=== PATIENT | female | born 1950 | race Caucasian/White ===

== ENCOUNTER → 2019-11-27 09:53 | Outpatient (CLI) | payer OTHER, SELFPAY ==
--- NOTE | 2019-11-27 | DI.RAD.S_ITS ---
PROCEDURE: XR DEXA AXIAL SKELETON INDICATIONS: OSTEOPOROSIS COMPARISON: None. FINDINGS: This blank DEXA report has been sent in error by the PACS system. The correct and complete report will be forthcoming in 1-2 days. Thank you for your patience and understanding. Dictated by: Rozina Muller MD, PhD on 11/27/2019 at 10:53 Approved by: Rozina Muller MD, PhD on 11/27/2019 at 11:03
== END ==
PROVIDERS: Family Provider Family Medicine; PCP Family Medicine; Referring Provider Family Medicine; Visit Provider Family Medicine
DX: M81.0 Age-related osteoporosis without current pathological fracture (principal); Z78.0 Asymptomatic menopausal state; E21.3 Hyperparathyroidism, unspecified; Z87.891 Personal history of nicotine dependence
CPT/HCPCS: 77080

== ENCOUNTER → 2023-11-18 13:34 | Outpatient (CLI) | payer OTHER, SELFPAY ==
--- NOTE | 2023-11-18 13:35 | DI.US.S_ITS ---
PROCEDURE: US THYROID INDICATIONS: preop thyroid TECHNIQUE: Real-time scanning was performed of the thyroid gland, with image documentation. COMPARISON: [facility], US, US THYROID, 01/05/2022, 10:50. [facility], US, US FINE NEEDLE ASPIRATION, 09/23/2020, 9:40. [facility], US, US THYROID, 09/01/2020, 9:50. [facility], US, US THYROID, 05/27/2023, 8:55. FINDINGS: Thyroid: Right lobe measures 3.7 x 1.3 x 1.0 cm. Left lobe measures 6.2 x 2.6 x 4.7 cm. Isthmus is 0.3 cm thick. Echotexture is heterogeneous. Nodule number: 1 Location: Right superior and posterior Size: Unchanged 1.3 cm. Composition: Predominantly solid Echogenicity: Mildly hypoechoic Shape: wider than tall. Margins: Smooth Echogenic foci: Absent Total points: 3 ACR TI-RADS category: Mildly suspicious Nodule number: 2 Location: Left inferior Size: Unchanged 5.9 cm. Composition: Predominantly solid Echogenicity: Heterogeneous Shape: wider than tall. Margins: Smooth Echogenic foci: Internal punctate echogenic foci Total points: 6 ACR TI-RADS category: Moderately suspicious Nodule number: 3 Location: Left superior Size: Unchanged 1.4 cm. Composition: Predominantly solid Echogenicity: Isoechoic Shape: wider than tall. Margins: Smooth Echogenic foci: Punctate echogenic foci Total points: 3 ACR TI-RADS category: Moderately suspicious IMPRESSION: Stable appearance of bilateral thyroid nodules. ACR TI-RADS definitions and recommendations: TI-RADS 1 (benign): 0 points. FNA not needed. TI-RADS 2 (not suspicious): 2 points. FNA not needed. TI-RADS 3 (mildly suspicious): 3 points. * FNA if 2.5 cm or larger, follow up if 1.5 cm or larger (at 1, 3, and 5 years). TI-RADS 4 (moderately suspicious): 4-6 points. * FNA if 1.5 cm or larger, follow up if 1 cm or larger (at 1, 2, 3, and 5 years). TI-RADS 5 (highly suspicious): 7 points or more. * FNA if 1 cm or larger, follow up if 0.5 cm or larger (every year for 5 years). Dictated by: Efren BENTON Interpreted: Gaston Chase MD on 11/18/2023 at 15:31 Transcribed by: MIRELLA on 11/18/2023 at 15:36 Approved by: Gaston Chase M.D. on 11/19/2023 at 8:40
[2023-11-18 16:10] LABS: Thyroid Stimulating Hormone 0.416 uIU/mL (0.47-4.68)
== END ==
PROVIDERS: Family Provider Family Medicine; PCP Family Medicine; Referring Provider Surgery; Visit Provider Surgery
DX: E04.2 Nontoxic multinodular goiter (principal)
CPT/HCPCS: 36415; 76536; 84443

== ENCOUNTER 2023-12-11 11:42 | Day surgery (SDC) | payer OTHER, SELFPAY ==
[2023-12-09 11:46] VITALS: BMI 22.1
[2023-12-11] VITALS (11 sets, daily range): BP systolic 120–186; BP diastolic 68–89; PULSE 56–73; RESP 8–22; TEMP 36.7–37.1; O2SAT 95–100; BMI 21.4
--- NOTE | 2023-12-11 | PATH_ITS ---
[facility] Accession Number: [id number] No. of containers..01 Tissue . 01 Material submitted: . THYROID - LEFT THYROID . 01 Diagnosis: LEFT THYROID, HEMITHYROIDECTOMY: Multinodular hyperplasia with dominant colloid nodules (4.5 cm,1.2 cm). Changes consistent with prior procedure. No evidence of malignancy. . [facility] 12/13/2023 0929 Local . 01 Electronically signed: . Jess Cobb MD, Pathologist NPI- [id number] . 01 Gross description: . Specimen is received in formalin, labeled with two patient identifiers and thyroid left, consists of a 5.5 x 4.0 x 3.1 cm, 33-gram, markedly distorted, enlarged lobe of thyroid that has a dobbins, shaggy, lobulated and irregular external surface. Further orientation cannot be determined anatomically, and the specimen is entirely inked blue and serially sectioned to show a 4.5 x 3.0 x 2.1 cm, faint, ill-defined, partially encapsulated, red-dobbins, cystic solitary nodule which abuts the shaggy overlying thyroid capsule. In addition, there is a 1.2 x 1.2 x 1.1 cm encapsulated dobbins colloid nodule that is loosely adherent to the periphery of the specimen and is otherwise unremarkable. The remaining thyroid parenchyma is red-dobbins, spongy, and the isthmus margin cannot be determined. No parathyroid or lymph nodes are appreciated on the external surface of the thyroid. [employer] sections are submitted as follows: . A1-A5: Sections of largest nodule concentrated on capsule and relationship to external surface of thyroid. A6: [employer] sections of loosely attached peripheral colloid nodule (smaller nodule). A7: [employer] sections of uninvolved thyroid parenchyma. A photograph is taken of the specimen . ([id number]) /MRV 12/12/2023 1811 Local . 01 Pathologist provided ICD-10: E04.2 . 01 CPT . 099677 Performed at: [address] [facility] [address], [place], [place] [id number] MD Cleveland Garcia MD Phone: [phone]
[2023-12-11] MEDS: LACTATED RINGERS 1,000 ML 42 ML IV (12:11)
[2023-12-11] MEDS: ACETAMINOPHEN 325 MG TABLET 975 MG PO (12:21)
--- NOTE | 2023-12-11 13:37 | PM.HP.1 ---
History of Present Illness History of Present Illness Date Patient Seen: 12/11/23 Time Patient Seen: 13:38 Chief complaint: Left Thyroidectomy Narrative: 73F with globus sensation and highly suspicious left thyroid nodules here for left hemithyroidectomy. No interval change in health. [facility] Medical History Osteoporosis Hypothyroidism Hyperkalemia Hyperparathyroidism Vitamin B12 deficiency Surgical History History of cholecystectomy H/O gastric bypass H/O parathyroidectomy Social History household members: spouse Smoking Status: Former smoker alcohol intake: never Meds Home Medications and Allergies Home Medications Medication Instructions Recorded Confirmed Type citalopram 20 mg tablet 20 mg PO DAILY 11/07/23 12/11/23 History ibandronate 150 mg tablet 150 mg PO QMONTH 11/07/23 12/11/23 History levothyroxine 75 mcg capsule 75 mcg PO DAILY 11/07/23 12/11/23 History Allergies Allergy/AdvReac Type Severity Reaction Status Date / Time No Known Drug Allergies Allergy Verified 12/11/23 12:22 Exam Vital Signs (past 8 hours): - 12/11/23 12:24 Temperature 98.8 F Pulse Rate 56 L Respiratory Rate 16 Blood Pressure 152/73 H Pulse Oximetry 99 Oxygen Delivery Method Room Air Oxygen Delivery Method Room Air Narrative Exam Narrative: Gen-Adult woman alert and oriented Left neck marked with my initials. Assessment & Plan Assessment and plan (1) Thyroid nodule: Status: Acute Assessment & Plan narrative: 73F with globus sensation and highly suspicious appearing left thyroid nodules. There is a right thyroid nodule but not highly suspicious and she had a prior r parathyroidectomy. I recommend left hemithyroidectomy the right nodule can be observed as there is an increased risk of injury associated with reoperation on the right. Overview of the operation discussed. Operative risks including hemorrhage, infection, nerve injury reviewed. She provides her consent to proceed. Time-Based Coding :: [TOTAL MINUTES] spent with patient and on the chart (including review of chart, obtaining history, exam, reviewing outside data, placing orders, documenting exam and treatment plan, and counseling patient) on [DATE].
[2023-12-11] MEDS: CEFAZOLIN 2 GM/100 ML PREMIX 100 ML IV (14:21)
--- NOTE | 2023-12-11 14:32 | SUR.OPER ---
Supine, head on gel donut. Arms padded with gel pads, tucked at sides, towel roll under shoulders. Safety belt at thigh. Legs uncrossed.
[2023-12-11] MEDS: BUPIVACAINE 0.25% (PF) VIAL 30 ML INJ (14:36)
--- NOTE | 2023-12-11 15:37 | P.OP_ITS ---
Operative Date/Time/Diagnoses Date of procedure: 12/11/23 Time of procedure: 15:38 Pre-op diagnosis: thyroid nodules Post-op diagnosis: same Procedure & Clinicians Procedure: Left hemithyroidectomy Same procedure as scheduled: Yes Indications: 73-year-old woman with to large highly suspicious nodules within the left thyroid resulting in globus sensation. She has a right-sided thyroid nodule which is not highly suspicious and history of a right parathyroidectomy and therefore we elected to remove only the left thyroid. Surgeon: Clay Bragg [employer] Clerk: Pankaj Fairbanks Anesthesia Type: General Operative Notes Findings: Multinodular left thyroid gland Superior and inferior left parathyroid glans identified. L recurrent laryngeal nerve identified Adhesions to the right thryoid capsule Specimen(s): other (Left thyroid) Estimated Blood Loss (mL): 20 Procedure in detail: Patient was brought to the operating room and placed supine on the table. Bilateral lower extremity compression devices were applied. General anesthesia was induced and he was intubated with an endotracheal tube. 2 g of Ancef were infused prior to skin incision. A shoulder roll was placed to extend the neck. She was prepped and draped in sterile fashion. A time-out was performed. A 6 cm collar incision 2 fingerbreadths above the sternal notch was made in the natural skin crease of the neck. The subcutaneous tissue was divided as well as the platysma using electrocautery. Subplatysmal flaps were developed in all directions. The midline raphe between the strap muscles was opened vertically along the direction of its fibers. The left thyroid lobe was very prominent. There were adhesions to the right thyroid capsule. The superior pole of the thyroid was approached 1st. The superior pole vessels were divided using the LigaSure close to the thyroid capsule. Next the inferior pole was approached a nd the strap muscles were carefully dissected away from the thyroid. The thyroid was then mobilized medial and anterior and this provided exposure of the recurrent laryngeal nerve running in the tracheoesophageal groove. The nerve was traced distal and proximal to its insertion and protected out of harm's way. The superior and inferior parathyroid glands were identified and protected. The middle thyroid vein was ligated and divided. The thyroid lobe was then dissected off of the trachea in its entirety and passed off the field as specimen. The isthmus was divided using the Thunderbeat. The field was copiously irrigated with water and hemostasis was achieved. A Valsalva was provided and there was no evidence of hemorrhage. The left thyroid bed was then dressed with Surgicel. Strap muscles were reapproximated using 3 0 Vicryl and the platysma with 4 0 Maxon. The skin was closed with a running 4-0 Monocryl suture followed by the application of Dermabond and Steri-Strips. Patient tolerated the procedure well. He emerged from anesthesia was extubated and transferred to the postoperative care unit in stable condition. Complications: none Post-operative Condition: stable Disposition: same day surgery
[2023-12-11] MEDS: HYDROMORPHONE 1 MG INJ IV ×3 (15:58→16:15)
[2023-12-11] MEDS: hydrOXYzine 50 MG/ML INJ 25 MG IM (16:16)
[2023-12-11] MEDS: OXYCODONE IR 5 MG TABLET PO (16:17)
[2023-12-11] MEDS: ONDANSETRON 4 MG/2 ML INJ IV (16:18)
== END 2023-12-11 17:00 | disposition home or self-care (01) ==
PROVIDERS: Family Provider Family Medicine; PCP Family Medicine; Referring Provider Surgery; Visit Provider Surgery
PROC: (CPT 60220; principal; 2023-12-11 14:45)
DX: E04.2 Nontoxic multinodular goiter (principal)
CPT/HCPCS: 60220; 82962; J0690; J1100; J1171; J2405; J2704; J2765; J3010; J3410; J3490

== ENCOUNTER → 2024-09-16 16:17 | Outpatient (CLI) | payer OTHER, SELFPAY ==
--- NOTE | 2024-09-16 | DI.RAD.S_ITS ---
PROCEDURE: XR HIP W PEL IF DONE RT 2V INDICATIONS: PAIN TECHNIQUE: Two views of the hip were acquired. COMPARISON: [facility], CR, XR HIP W PEL IF DONE RT 2V, 05/06/2024, 12:58. FINDINGS: Bones: There are no osseous abnormalities. SI and hip joints: Moderate right and mild left hip degeneration noted. Both SI joints are normal. Moderate osteitis pubis appreciated. Severe L5-S1 degenerative disc and facet disease. Soft tissues: No soft tissue swelling, calcification or mass. IMPRESSION: Chronic findings as described Dictated by: Donnie Connolly M.D. on 09/17/2024 at 10:50 Approved by: Donnie Connolly M.D. on 09/17/2024 at 10:51
--- NOTE | 2024-09-16 | DI.RAD.S_ITS ---
PROCEDURE: XR LUMBAR SPINE 2-3V INDICATIONS: PAIN TECHNIQUE: 3 views of the lumbar spine were acquired. COMPARISON: [facility], , XR LUMBAR SPINE 2-3V, 05/06/2024, 12:58. FINDINGS: Lumbar spine curvature and alignment: Moderate dextroscoliosis of the lower thoracic spine and mild levoscoliosis of the lumbar spine appreciated. Bones: Mild chronic wedging T10 through T12 vertebral bodies may be due to chronic osteoporosis or chronic Scheuermann's disease Disc spaces: Severe degenerative disc disease is seen throughout the lumbar spine . There is severe L2-3 through L5-S1 degenerative facet disease Soft tissues: No soft tissue swelling, calcification or mass. IMPRESSION: Severe degeneration Dictated by: Donnie Connolly M.D. on 09/17/2024 at 10:53 Approved by: Donnie Connolly M.D. on 09/17/2024 at 10:55
--- NOTE | 2024-09-16 | DI.RAD.S_ITS ---
PROCEDURE: XR KNEE RT 3V INDICATIONS: PAIN TECHNIQUE: 3 views of the knee were acquired. COMPARISON: None. FINDINGS: Bones: A 4.3 x 2.5 cm well-circumscribed radiolucent lesion dominates the medial femoral condyle. Joints: Moderate patellofemoral and tibial femoral degenerative change appreciated. No effusion. No Effusion. Soft tissues: Normal IMPRESSION: Moderate degeneration. 4.3 x 2.5 cm well-circumscribed radiolucent lesion dominating the medial femoral condyle. Suggest MRI for further evaluation. If patient is not a candidate for MRI, than with suggest three-month follow-up right knee films to ensure stability Dictated by: Donnie Connolly M.D. on 09/17/2024 at 10:51 Approved by: Donnie Connolly M.D. on 09/17/2024 at 10:53
== END ==
PROVIDERS: Family Provider Family Medicine; PCP Family Medicine; Referring Provider Family Medicine; Visit Provider Family Medicine
DX: M16.0 Bilateral primary osteoarthritis of hip (principal); M51.361 Other intervertebral disc degeneration, lumbar region with lower extremity pain only; M51.371 Other intervertebral disc degeneration, lumbosacral region with lower extremity pain only; M47.816 Spondylosis without myelopathy or radiculopathy, lumbar region; M47.817 Spondylosis without myelopathy or radiculopathy, lumbosacral region; M79.604 Pain in right leg; M89.9 Disorder of bone, unspecified; M25.461 Effusion, right knee
CPT/HCPCS: 72100; 73502; 73562